=== PATIENT | female | born 1995 | race African-American/Black ===

== ENCOUNTER 2017-10-30 18:23 | Emergency (ER) | payer SELFPAY ==
[~2017-10-30] VITALS: Ht 157.5 cm; Wt 107.0 kg
[2017-10-30 22:04] LABS: CLARITY URINE CLOUDY (CLEAR); COLOR URINE YELLOW (YELLOW); KETONES URINE NEGATIVE (NEGATIVE); LEUKOCYTE ESTERASE URINE TRACE (NEGATIVE); NITRITE URINE NEGATIVE (NEGATIVE); OCCULT BLOOD URINE 3+ (NEGATIVE); PROTEIN URINE TRACE (NEGATIVE); SPECIFIC GRAVITY URINE 1.022 (1.005-1.030); UROBILINOGEN URINE 0.2 E.U./dL (0.2-1.0)
[2017-10-30] MEDS ORDERED: ONDANSETRON 4MG ODT PO STA (23:22)
[2017-10-30] MEDS ORDERED: MAGNESIUM/ALUMINUM HYDROXIDE/SIMETHICONE 30ML UDC PO STA (23:22)
[2017-10-30] MEDS ORDERED: FAMOTIDINE 20MG TABLET PO ONE (23:30)
[2017-10-31 00:02] VITALS: BP 121/79
== END 2017-10-31 01:00 | disposition home or self-care (01) ==
LOC: ER 20:36
DX: K29.70 Gastritis, unspecified, without bleeding (principal); Z88.0 Allergy status to penicillin
CPT/HCPCS: 81003; 81025; 99284; Q0162

== ENCOUNTER 2018-05-22 12:12 | Emergency (ER) | payer MEDICAID ==
[~2018-05-22] VITALS: Ht 157.5 cm; Wt 106.1 kg
[2018-05-22] MEDS ORDERED: KETOROLAC 60MG/2ML VIAL IM ONE (16:00)
[2018-05-22 16:34] VITALS: BP 115/75
== END 2018-05-22 17:43 | disposition home or self-care (01) ==
LOC: ER 12:56
DX: J06.9 Acute upper respiratory infection, unspecified (principal); Z88.0 Allergy status to penicillin
CPT/HCPCS: 81025; 87070; 87077; 87430; 96372; 99283; J1885

== ENCOUNTER 2021-06-18 20:07 | Emergency (ER) | payer BC ==
[~2021-06-18] VITALS: Ht 157.5 cm; Wt 122.0 kg
[2021-06-19 01:25] VITALS: BP 125/66
== END 2021-06-19 01:27 | disposition home or self-care (01) ==
LOC: ER 20:07
DX: J06.9 Acute upper respiratory infection, unspecified (principal); Z20.822 Contact with and (suspected) exposure to COVID-19; Z88.0 Allergy status to penicillin
CPT/HCPCS: 99283; C9803; U0003; U0005

== ENCOUNTER 2021-06-27 21:13 | Emergency (ER) | payer BC ==
[~2021-06-27] VITALS: Ht 160 cm; Wt 82.0 kg
[2021-06-28 01:20] LABS: CLARITY URINE CLEAR (CLEAR); COLOR URINE ORANGE (YELLOW); KETONES URINE TRACE (NEGATIVE); LEUKOCYTE ESTERASE URINE TRACE (NEGATIVE); NITRITE URINE NEGATIVE (NEGATIVE); OCCULT BLOOD URINE 3+ (NEGATIVE); PROTEIN URINE 2+ (NEGATIVE); SPECIFIC GRAVITY URINE 1.029 (1.005-1.030); UROBILINOGEN URINE 0.2 E.U./dL (0.2-1.0)
[2021-06-28 01:43] LABS: BASOPHILS % 0.4 % (0.0-2.0); EOSINOPHILS % 1.7 % (0.0-5.0); HEMATOCRIT. 26.2 % (36.0-48.0); HEMOGLOBIN. 8.3 g/dL (12.0-16.0); LYMPHOCYTES % 30.1 % (20.0-50.0); MEAN CORPUSCULAR HEMOGLOBIN 20.6 pg (28.0-32.0); MEAN CORPUSCULAR VOLUME 64.9 fL (81.0-99.0); MEAN PLATELET VOLUME 6.9 fl (7.4-10.4); MONOCYTES % 10.4 % (2.0-8.0); NEUTROPHILS % 57.4 % (40.0-76.0); PLATELET 511 x1000/uL (130-400); RED BLOOD CELL COUNT 4.04 mill/uL (4.2-5.4); RED CELL DISTRIBUTION WIDTH 19.7 % (11.6-14.6)
[2021-06-28 01:46] LABS: CHLORIDE 101 mEq/L (98-107)
[2021-06-28 02:04] LABS: B-HCG QUANTITATIVE < 1 mIU/mL (<3)
[2021-06-28] MEDS ORDERED: FERR324T4 MT (02:32)
[2021-06-28 02:57] VITALS: BP 135/79
[2021-06-28 05:34] LABS: PLATELET ESTIMATE INCREASED
== END 2021-06-28 02:58 | disposition home or self-care (01) ==
LOC: ER 21:13
DX: U07.1 COVID-19 (principal); D64.9 Anemia, unspecified; N93.9 Abnormal uterine and vaginal bleeding, unspecified; Z88.0 Allergy status to penicillin; Z88.1 Allergy status to other antibiotic agents; Z79.899 Other long term (current) drug therapy
CPT/HCPCS: 36415; 76830; 76856; 80053; 81003; 81025; 84702; 85025; 86850; 86900; 86901; 99284; C9803; U0003; U0005

== ENCOUNTER 2022-04-28 11:38 | Emergency (ER) | payer SELFPAY ==
[~2022-04-28] VITALS: Ht 162.6 cm; Wt 100.0 kg
[~2022-04-28 11:38] MED LIST: FERR324T4 MT
[2022-04-28 11:57] VITALS: BP 135/90
[2022-04-28] MEDS ORDERED: NAPR500T7 MT (13:11)
[2022-04-28] MEDS ORDERED: CYCL10TA21 MT (13:11)
== END 2022-04-28 14:00 | disposition home or self-care (01) ==
LOC: ER 11:38
DX: M54.50 Low back pain, unspecified (principal); Z88.0 Allergy status to penicillin
CPT/HCPCS: 99283